=== PATIENT | female | born 1995 | race Two or more races ===

== ENCOUNTER 2018-12-14 22:20 | Emergency (ER) | payer BC, MEDICAID ==
[~2018-12-14] VITALS: Ht 160 cm; Wt 53.5 kg
[2018-12-14 22:24] VITALS: BP 129/78
[2018-12-14] MEDS ORDERED: IBUPROFEN 600 MG TABLET PO ONE ×2 (22:40→23:00)
[2018-12-14] MEDS ORDERED: ONDANSETRON 4 MG TAB.RAPDIS ONE (22:41)
[2018-12-14] MEDS ORDERED: ONDANSETRON HCL 4 MG/5 ML SOLUTION PO ONE (23:00)
== END 2018-12-14 22:49 | disposition home or self-care (01) ==
LOC: ER 22:24
DX: R51 Headache (principal); F43.9 Reaction to severe stress, unspecified; F41.9 Anxiety disorder, unspecified; F32.9 Major depressive disorder, single episode, unspecified; Z88.0 Allergy status to penicillin
CPT/HCPCS: 99283; Q0162